=== PATIENT | female | born 1990 | race Caucasian/White ===

== ENCOUNTER 2022-06-22 08:25 | Outpatient (REF) | payer OTHER, SELFPAY ==
[2022-06-22 11:30] LABS: MANUAL DIFF FLAG NO
[2022-06-22 11:33] LABS: Appearance Urine Cloudy; Color Urine Yellow; Glucose Urine UA Negative (Negative); Leukocyte Esterase Urine Trace (Negative); Nitrite Urine Negative (Negative); UMIC TRIGGER UACC YES; Urine Blood Negative (Negative); Urine Ketones Negative (Negative); Urine Protein Negative (Neg-Trace)
[2022-06-22 11:33] LABS: Basophils Absolute Auto 0.1 X10*3/uL (0.0-0.2); Basophils Percent Auto 0.8 % (0-2); Eosinophils Absolute Auto 0.4 X10*3/uL (0.0-0.4); Eosinophils Percent Auto 5.9 % (0-4); Hematocrit 38.6 % (37.0-47.0); Hemoglobin 12.9 g/dl (12.0-16.0); Imm Gran Abs Auto 0.01 X10*3/uL (0.00-0.03); Imm Gran Pct Auto 0.2 % (0.0-0.4); Lymphocytes Absolute Auto 2.8 X10*3/uL (1.2-4.9); Lymphocytes Percent Auto 45.7 % (20-40); Mean Corpuscular HGB Conc 33.4 g/dl (31.0-35.0); Mean Corpuscular Hemoglobin 30.9 pg (27.0-33.0); Mean Corpuscular Volume 92.6 fL (80.0-98.0); Mean Platelet Volume 10.3 fL (9.4-12.3); Monocytes Absolute Auto 0.6 X10*3/uL (0.1-1.2); Monocytes Percent Auto 9.6 % (2-11); Neutrophils Absolute Auto 2.3 x10*3/uL (2.0-8.3); Neutrophils Percent Auto 37.8 % (45-73); Platelet Count 338 X10*3/uL (160-400); Red Blood Count 4.17 X10*6/uL (4.20-5.50); Red Cell Distribution Width 12.5 % (11.0-16.0); White Blood Count 6.1 X10*3/uL (4.8-10.8)
[2022-06-22 11:38] LABS: Bacteria Urine 3+ (None Seen); Hyaline Casts Urine 0-2 /LPF (0-2); UACC Culture Trigger YES
[2022-06-22 12:03] LABS: Alanine Aminotransferase 11 U/L (0-31); Alkaline Phosphatase 44 U/L (39-117); Anion Gap 10 (12-20); Aspartate Amino Transferase 14 U/L (5-31); Bilirubin Total 0.7 mg/dL (0.0-1.0); Blood Urea Nitrogen 8 mg/dL (9-16); Calcium 8.9 mg/dL (8.4-10.2); Carbon Dioxide 27 mmol/L (22-29); Chloride 108 mmol/L (96-108); Cholesterol 158 mg/dL; Estimated Glomerular Filt Rate > 60; Glucose Fasting 87 mg/dL (60-99); HDL Cholesterol 60 mg/dL; LDL Cholesterol Calculated 88 mg/dl; Potassium 4.3 mmol/L (3.3-5.1); Sodium 141 mmol/L (135-145); Total Protein 6.3 g/dL (6.5-8.0); Triglycerides 53 mg/dL
[2022-06-22 12:07] LABS: TSH reflex Free T4 0.83 uIU/mL (0.32-4.0)
== END 2022-06-22 08:26 | disposition home or self-care (01) ==
LOC: HO.HMGCLDS 08:25
PROVIDERS: PCP Nurse Practitioner Family; Visit Provider Nurse Practitioner Family
DX: Z00.00 Encounter for general adult medical examination without abnormal findings (principal); R82.90 Unspecified abnormal findings in urine
CPT/HCPCS: 36415; 80053; 80061; 81001; 84443; 85025; 87086

== ENCOUNTER 2022-10-01 12:26 | Outpatient (AMB) | payer OTHER, SELFPAY ==
--- NOTE | 2022-10-01 07:21 | MHC.PC.OV ---
Intake Visit Reasons: [phone]/Iphone/ Med management Allergies amoxicillin Allergy (Unknown, Verified 01/28/22 16:02) Hives penicillin V Allergy (Unknown, Verified 01/28/22 16:02) Hives Tobacco use date assessed: 01/28/22 HPI [phone]/Iphone/ Med management HPI Details Pt c/o increased anxiety. She reports this is worse when going to work. Will increase buspirone from 10mg bid to 15mg bid. Denies any SI and HI. [facility] Medical History Anxiety Hx of migraines Panic attacks Family History Father HTN (hypertension) High cholesterol Mother HTN (hypertension) Abnormal breast biopsy Maternal Grandmother Lung cancer Maternal Grandfather Cancer Paternal Grandmother No problems noted. Paternal Grandfather FH: stomach cancer Social History Housing: House Alcohol intake: current Alcohol intake frequency: a few times a month Patient Tobacco Use Status: Current someday Tobacco user (summer time ) e-Cigarette/Vaping Use: Never Used Second Hand Smoke Exposure: No service: No Current occupational status: employed Current occupation: [employer] Current occupational exposures/hazards: Yes Cognitive needs: No Hearing needs: No Vision needs: No Questionnaire Thrive Questionnaire Date Thrive assessed: 01/28/22 TANGELA-7 AMB Questionnaire TANGELA-7 Date TANGELA - 7 assessed: 01/28/22 Source: Developed by Drs. Ángel Payton, Katiana Roberts, Matthew Edge and colleagues, with an educational edu from [employer]. Review of Systems Const Reports as per HPI Physical exam (Primary Care) Tobacco/Smoking Status: Tobacco use Status Tobacco use date assessed 01/28/22 10/01/22 07:23 Patient Tobacco Use Status Current someday Tobacco ( 10/01/22 07:23 summer time ) e-Cigarette/Vaping Use Never Used 10/01/22 07:23 Thrive Assessment: Date of Thrive Assessment Date Thrive assessed 12/19/22 08/22/23 07:23 Const General: cooperative Orientation/consciousness: patient oriented x3 Neuro General: patient oriented x3 Psych Appearance: grossly normal Mental Status: mental status grossly normal Speech and movement: Clear speech present Affect: normal affect Attitude: cooperative Thought process: Normal thought process present Thought content: Normal thought content present Insight: Good insight present (Psych) Judgement: Good judgement present (Psych) Telehealth Telehealth Location of provider rendering services: practice address Location of patient: address on file Patient Identification confirmed using: Name, : Yes Telehealth method: video Patient verbally consented to treatment: Yes Patient verbally consented to billing insurance company: Yes Patient informed of any privacy concerns related to visit: Yes Minutes spent on Phone/Video with Pt.: 10 Assessment and Plan Assessment & Plan (1) Anxiety: Code(s): F41.9 - Anxiety disorder, unspecified Plan The patient agreed to the use of a medical receptionist for this encounter. Scribed for TOM Robb by Domi Garcia medical receptionist, on 10/01/2022 at 07:20 EST. Medications: Changed From buspirone 10 mg PO BID 180 tabs 1RF To buspirone 15 mg PO BID 60 tabs 3RF 30 days Coding Level of Care Code Tele Est Pt Level 3 (49153) Diagnoses Anxiety F41.9
== END 2022-10-01 12:26 | disposition home or self-care (01) ==
PROVIDERS: PCP Nurse Practitioner Family; Visit Provider Nurse Practitioner Family
DX: F41.9 Anxiety disorder, unspecified (principal)
CPT/HCPCS: 99213

== ENCOUNTER 2022-12-27 08:23 | Outpatient (AMB) | payer OTHER, SELFPAY ==
[2022-12-27 08:54] VITALS: BP 110/68; PULSE 89; TEMP 36.6; O2SAT 96; BMI 27.8
--- NOTE | 2022-12-27 08:54 | MHC.OFFWIV ---
Intake Vital Signs 12/27/22 08:54 Height 5 ft 3 in Weight 157 lb BMI 27.8 BP 110/68 Blood Pressure Location Rt brachial Position Sitting Pulse 89 Pulse Source Pulse Oximeter Temp 97.8 F Temp Source Temporal Artery Scan Pulse Oximetry (%) 96 Oxygen Delivery Method Room Air Intake Visit Reasons: EP Sinus Infection masked in lobby Intake Note: pt is here for c/o possible sinus infection Patient Tobacco Use Status: Current someday Tobacco user (summer ) Allergies amoxicillin Allergy (Unknown, Verified 12/27/22 08:55) Hives penicillin V Allergy (Unknown, Verified 12/27/22 08:55) Hives Do you need a note to return to daycare/school/sports/work: Yes HPI HPI Comments History of Present Illness Details This is a 32-year-old female who presents to the office today for sick visit. Patient complaining of sinus congestion and facial pain x1 week. Patient states she has been sick for approximately 3 weeks with waxing and waning viral URI symptoms such as nasal congestion, rhinorrhea, sore throat, and sinus pressure. She started to develop severe sinus congestion, facial pain, and rhinorrhea approximately 1 week ago. She denies any fevers or chills. She denies any chest pain or shortness of breath. She denies any abdominal pain or nausea/vomiting/diarrhea. [facility] Medical History Anxiety Hx of migraines Panic attacks Family History Father HTN (hypertension) High cholesterol Mother HTN (hypertension) Abnormal breast biopsy Maternal Grandmother Lung cancer Maternal Grandfather Cancer Paternal Grandmother No problems noted. Paternal Grandfather FH: stomach cancer Social History Housing: House Alcohol intake: current Alcohol intake frequency: a few times a month Patient Tobacco Use Status: Current someday Tobacco user (summer ) e-Cigarette/Vaping Use: Never Used Second Hand Smoke Exposure: No service: No Current occupational status: employed Current occupation: [employer] Current occupational exposures/hazards: Yes Cognitive needs: No Hearing needs: No Vision needs: No Review of Systems Const All systems reviewed & are unremarkable except as noted in HPI and below Reports no additional complaints Eyes Reports no additional complaints ENT Reports no additional complaints Card Reports no additional complaints Resp Reports no additional complaints GI Reports no additional complaints Reports no additional complaints Musc Reports no additional complaints Skin/Breast Reports system reviewed and no additional complaints, except as documented Neuro Reports no additional complaints Psych Reports no additional complaints Endo Reports no additional complaints Rayo/Lymph Reports no additional complaints Aller/Immun Reports no additional complaints Physical Exam Vital Signs: Last Vital Signs Temp 97.8 F 12/27/22 08:54 Pulse 89 12/27/22 08:54 BP 110/68 12/27/22 08:54 Pulse Ox 96 12/27/22 08:54 Oxygen Delivery Method Room Air 12/27/22 08:54 BMI result Body Mass Index 27.8 Const Other: Vital signs reviewed. Constitutional: Non-toxic appearing. No acute distress. Well-developed and well-nourished. HEENT: Normocephalic and atraumatic. Tympanic membranes without erythema, edema, or bulging bilaterally. External auditory canals without erythema or edema bilaterally. Moist mucous membranes. Postnasal drip with mild posterior pharyngeal erythema. Tenderness to palpation of the maxillary sinuses. Skin: Warm and dry. No rashes or lesions noted. Neck: Full and painless range of motion. No cervical lymphadenopathy. Cardio: Regular rate and rhythm. No murmurs, gallops, or rubs. No lower extremity edema. No JVD. Pulmonary: No respiratory distress. No accessory muscle usage. Clear to auscultation bilaterally without wheezing, crackles, or rhonchi. Gastrointestinal: Soft, nontender, and nondistended in all 4 quadrants. Normoactive bowel sounds in all 4 quadrants. Genitourinary: No CVA tenderness. Musculoskeletal: Normal range of motion in joints throughout the body. No deformity or other signs of injury. Neuro: Alert and oriented x4. Cranial nerves 2-12 grossly intact. No focal deficits appreciated. Psych: Normal mood and affect. Assessment & Plan Assessment & Plan (1) Acute rhinosinusitis: Code(s): J01.90 - Acute sinusitis, unspecified Plan: This is a 32-year-old female who presents the office complaining of sinus pain, sinus congestion, and rhinorrhea x1 week in the setting of waxing and waning viral URI symptoms x3 weeks. History and physical most consistent with an acute bacterial rhinosinusitis. Patient's vital signs are stable, her physical exam is benign, and she is overall nontoxic appearing. Patient sent home on p.o. doxycycline 100 mg twice daily x7 days. Patient was advised to wear long sleeves/pants in utilizes taking doxycycline. She was also recommended to take a probiotic while she is utilize any antibiotic. Recommended symptomatic management including rest, increased fluids, advil/tylenol for pain/fever, and over the counter throat lozenges/decongestants. Patient advised to follow up here or go to the emergency room for worsening/persistent symptoms. Patient verbalized understanding and is agreeable with the plan. Medications: New doxycycline hyclate 100 mg PO BID 14 caps 0RF Coding Level of Care Code Est Pt Level 3 (48120) Diagnoses Acute rhinosinusitis J01.90
== END 2022-12-27 09:12 | disposition home or self-care (01) ==
PROVIDERS: PCP Nurse Practitioner Family; Visit Provider Physician Assistant Medical
DX: J01.90 Acute sinusitis, unspecified (principal)
CPT/HCPCS: 99213

== ENCOUNTER 2023-01-29 16:27 | Outpatient (AMB) | payer OTHER, SELFPAY ==
[2023-01-29 16:29] VITALS: BP 100/80; PULSE 94; O2SAT 97; BMI 28.2
--- NOTE | 2023-01-29 16:29 | MHC.PC.OV ---
Vital Signs 01/29/23 16:29 Height 5 ft 3 in Weight 159 lb BMI 28.2 BP 100/80 Blood Pressure Location Rt brachial Position Sitting Pulse 94 Pulse Source Pulse Oximeter Pulse Oximetry (%) 97 Oxygen Delivery Method Room Air Intake Visit Reasons: PE Intake Note: Pt is here today for her PE Allergies amoxicillin Allergy (Unknown, Verified 01/29/23 17:12) Hives penicillin V Allergy (Unknown, Verified 01/29/23 17:12) Hives Medication List - Last Reconciled 01/29/23 by YAW Lopez-DILLAN buspirone 15 mg PO BID norethindrone (contraceptive) 0.35 mg PO DAILY Tobacco use date assessed: 01/29/23 Dental Screening Dental Screen Date: 01/29/23 Did you have a dental visit in the last 12 months?: Yes Did you have a dental problem in the last 6 months where you did not have access to dental care?: No Was dental information given to patient?: Patient has dentist HPI PE HPI Details Pt is here for a PE. Will order labs. 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 Pt reports right ear discomfort. [facility] Medical History Panic attacks Anxiety Hx of migraines Family History Father HTN (hypertension) High cholesterol Mother HTN (hypertension) Abnormal breast biopsy Maternal Grandmother Lung cancer Mental health disorder Maternal Grandfather Cancer Paternal Grandmother Mental health disorder Paternal Grandfather FH: stomach cancer Social History Housing: House Alcohol intake: current Alcohol intake frequency: a few times a month Patient Tobacco Use Status: Former Tobacco user (summer time ) e-Cigarette/Vaping Use: Never Used Second Hand Smoke Exposure: No service: No Current occupational status: employed Current occupation: [employer] Current occupational exposures/hazards: Yes Cognitive needs: No Hearing needs: No Vision needs: No Questionnaire PHQ-9 Over the last 2 weeks, how often have you been bothered by any of the following problems? 1. Little interest or pleasure in doing things: several days 2. Feeling down, depressed, or hopeless: several days 3. Trouble falling or staying asleep, or sleeping too much: more than half the days 4. Feeling tired or having little energy: more than half the days 5. Poor appetite or overeating: not at all 6. Feeling bad about yourself - or that you are a failure or have let yourself or your family down: more than half the days 7. Trouble concentrating on things, such as reading the newspaper or watching television: more than half the days 8. Moving or speaking so slowly that other people could have noticed. Or the opposite - being so fidgety or restless that you have been moving around a lot more than usual: not at all 9. Thoughts that you would be better off or of hurting yourself in some way: not at all Total score: 10 Depression Screening Interpretation: Positive Depression Screening Follow-up: Existing condition and Declines treatment Depression Screening Done: Yes 94701 - PHQ-9 Billing: Yes Source: Developed by Drs. Ángel Payton, Katiana Roberts, Matthew Edge and colleagues, with an educational edu from [employer]. Thrive Questionnaire Date Thrive assessed: 01/29/23 I am a: Patient What is your living situation today?: I have a steady place to live Within the past 12 months, did the food you bought not last and you didn't have the money to get more?: Never true Within the past 12 months, did you worry whether your food would run out before you got money to buy more?: Never true Do you have trouble paying for medicines?: No Do you have trouble getting transportation to medical appointments?: No Do you have trouble paying your heating and electricity bill?: No Do you have trouble taking care of your child, family member or friend?: No Do you have trouble with day-to-day activities such as bathing, preparing meals, shopping, managing finances, etc.?: No Are you currently unemployed and looking for a job?: No Are you interested in more education?: No TANGELA-7 AMB Questionnaire TANGELA-7 Date TANGELA - 7 assessed: 01/29/23 Feeling nervous, anxious, or on edge: 2 = More than half the days Not being able to stop or control worryin = More than half the days Worrying too much about different things: 2 = More than half the days Trouble relaxin = More than half the days Being so restless that it is hard to sit still: 2 = More than half the days Becoming easily annoyed or irritable: 2 = More than half the days Feeling afraid as if something awful might happen: 2 = More than half the days Total TANGELA-7 score (0-4 normal; 5-9 mild; 10-14 moderate; 15-21 severe): 14 Source: Developed by Drs. Ángel Payton, Katiana Roberts, Matthew Edge and colleagues, with an educational edu from [employer]. TANGELA-7 Assessment Billing TANGELA-7 Assessment Tool: TANGELA-7 Assessment 00576 Review of Systems Const Denies chills and Denies fever(s) Eyes Denies blurry vision ENT Denies vertigo, Denies dizziness and Denies sore throat Card Denies chest pain at rest, Denies chest pain with activity, Denies diaphoresis, Denies dyspnea and Denies dyspnea on exertion Resp Denies cough, Denies dyspnea, Denies dyspnea on exertion and Denies wheezing GI Denies abdominal pain, Denies melena, Denies hematochezia, Denies constipation, Denies diarrhea and Denies loose stools Denies hematuria Musc Denies numbness and Denies tingling Skin/Breast Denies lesions Neuro Denies vertigo, Denies dizziness, Denies numbness and Denies tingling Psych Denies anxiety, Denies depression, Denies homicidal ideation, Denies suicidal ideation and Denies other (substance abuse) Aller/Immun Denies wheezing Physical exam (Primary Care) Vital Signs: Last Vital Signs Pulse 94 01/29/23 16:29 BP 100/80 01/29/23 16:29 Pulse Ox 97 01/29/23 16:29 Oxygen Delivery Method Room Air 01/29/23 16:29 BMI result Body Mass Index 28.2 Tobacco/Smoking Status: Tobacco use Status Tobacco use date assessed 01/29/23 01/29/23 16:35 Patient Tobacco Use Status Former Tobacco user (summer01/29/23 16:35 time ) e-Cigarette/Vaping Use Never Used 01/29/23 16:35 PHQ-9: PHQ-9 Score PHQ-9: Total score 10 01/29/23 16:56 Depression Screening Interpretation: Positive Depression Screening Follow-up: Existing condition and Declines treatment Thrive Assessment: Date of Thrive Assessment Date Thrive assessed 01/29/23 01/29/23 16:56 Const General: cooperative Nutritional Appearance: well nourished Orientation/consciousness: patient oriented x3 HENMT Other: right TM bulging, faintly erythematous. Head: Yes normal to inspection, Yes normocephalic and Yes atraumatic Ears: TM's normal bilaterally Eyes General: appearance normal, both eyes and all related structures Alignment and Position: alignment normal and position normal Neck Neck: Yes normal visual inspection and Yes no lymphadenopathy Thyroid: Thyroid normal Resp Effort & Inspection: normal respiratory effort Auscultation: clear to auscultation bilaterally Cardio Rate: regular rate Rhythm: regular rhythm Heart sounds: S1 normal heart sound present, S2 normal heart sound present and no murmurs GI Palpation (GI): Soft to palpation and nontender Auscultation: normal bowel sounds Skin Rashes: no rashes Neuro General: patient oriented x3, moves all extremities, no focal motor deficits and deep tendon reflexes 2+ bilaterally Romberg Test: Negative Psych Appearance: grossly normal Mental Status: mental status grossly normal Speech and movement: Normal speech and movement present Affect: normal affect Attitude: cooperative Thought process: Normal thought process present Thought content: Normal thought content present Insight: Good insight present (Psych) Judgement: Good judgement present (Psych) Assessment and Plan Assessment & Plan (1) Physical exam: Code(s): Z00.00 - Encounter for general adult medical examination without abnormal findings (2) Otitis media: Code(s): H66.90 - Otitis media, unspecified, unspecified ear Plan: prednisone and doxy sent Orders: Orders Complete Blood Count Auto Diff Today Z00.00 - Encounter for general adult medical examination without abnormal findings Lipid Panel Today Z00.00 - Encounter for general adult medical examination without abnormal findings Comprehensive Girard. Panel Fast Today Z00.00 - Encounter for general adult medical examination without abnormal findings TSH reflex Free T4 Today Z00.00 - Encounter for general adult medical examination without abnormal findings UA CC w/rflx Micro + Cult Today Z00.00 - Encounter for general adult medical examination without abnormal findings Medications: New doxycycline hyclate 100 mg PO BID 20 tabs 0RF 10 days prednisone 40 mg (2 x 20 mg) PO DAILY 10 tabs 0RF 5 days Coding Level of Care Code Est Pt Prev Care 18-39y(11591) Diagnoses Physical exam Z00.00 Otitis media H66.90 Additional Codes TANGELA-7 Assessment Billing - TANGELA-7 Assessment Tool: TANGELA-7 Assessment [id number] ([id number])
== END 2023-01-29 16:52 | disposition home or self-care (01) ==
PROVIDERS: Visit Provider Nurse Practitioner Family
DX: Z00.00 Encounter for general adult medical examination without abnormal findings (principal); H66.90 Otitis media, unspecified, unspecified ear
CPT/HCPCS: 99395

== ENCOUNTER 2024-02-14 09:02 | Outpatient (REF) | payer OTHER, SELFPAY ==
[2024-02-14 11:22] LABS: MANUAL DIFF FLAG NO
[2024-02-14 11:47] LABS: Basophils Absolute Auto 0.1 X10*3/uL (0.0-0.2); Basophils Percent Auto 0.8 % (0-2); Eosinophils Absolute Auto 0.3 X10*3/uL (0.0-0.4); Eosinophils Percent Auto 4.7 % (0-4); Hematocrit 40.8 % (37.0-47.0); Hemoglobin 13.6 g/dl (12.0-16.0); Imm Gran Abs Auto 0.02 X10*3/uL (0.00-0.03); Imm Gran Pct Auto 0.3 % (0.0-0.4); Lymphocytes Absolute Auto 2.4 X10*3/uL (1.2-4.9); Lymphocytes Percent Auto 39.2 % (20-40); Mean Corpuscular HGB Conc 33.3 g/dl (31.0-35.0); Mean Corpuscular Hemoglobin 30.8 pg (27.0-33.0); Mean Corpuscular Volume 92.3 fL (80.0-98.0); Mean Platelet Volume 9.8 fL (9.4-12.3); Monocytes Absolute Auto 0.6 X10*3/uL (0.1-1.2); Monocytes Percent Auto 9.1 % (2-11); Neutrophils Absolute Auto 2.8 x10*3/uL (2.0-8.3); Neutrophils Percent Auto 45.9 % (45-73); Platelet Count 339 X10*3/uL (160-400); Red Blood Count 4.42 X10*6/uL (4.20-5.50); Red Cell Distribution Width 12.9 % (11.0-16.0)
[2024-02-14 12:00] LABS: Alanine Aminotransferase 21 U/L (0-31); Albumin Level 4.3 g/dL (3.5-5.0); Alkaline Phosphatase 51 U/L (39-117); Anion Gap 11 (12-20); Aspartate Amino Transferase 23 U/L (5-31); Bilirubin Total 0.6 mg/dL (0.0-1.0); Blood Urea Nitrogen 9 mg/dL (9-16); Calcium 9.4 mg/dL (8.4-10.2); Carbon Dioxide 26 mmol/L (22-29); Chloride 109 mmol/L (96-108); Cholesterol 202 mg/dL (<200); Estimated Glomerular Filt Rate > 60; Glucose Fasting 95 mg/dL (60-99); HDL Cholesterol 71 mg/dL (>40); LDL Cholesterol Calculated 115 mg/dL (<100); Potassium 4.8 mmol/L (3.3-5.1); Sodium 141 mmol/L (135-145); Triglycerides 81 mg/dL (<150)
[2024-02-14 12:07] LABS: TSH reflex Free T4 0.63 uIU/mL (0.32-4.0); Vitamin D 25-OH Total 38.1 ng/mL (>30)
[2024-02-14 12:19] LABS: Appearance Urine Clear; Color Urine Yellow; Glucose Urine UA Negative (Negative); Leukocyte Esterase Urine Negative (Negative); Nitrite Urine Negative (Negative); PH 6.5 (5.0-9.0); UMIC TRIGGER UACC YES; Urine Blood Small (1+) (Negative); Urine Ketones Negative (Negative); Urine Protein Negative (Neg-Trace)
[2024-02-14 12:36] LABS: Bacteria Urine None Seen (None Seen); Hyaline Casts Urine 0-2 /LPF (0-2); WBC Urine 0-5 /HPF (0-5)
== END 2024-02-14 09:03 | disposition home or self-care (01) ==
LOC: HO.HMGCLDS 09:02
PROVIDERS: PCP Nurse Practitioner Family; Visit Provider Nurse Practitioner Family
DX: Z00.00 Encounter for general adult medical examination without abnormal findings (principal)
CPT/HCPCS: 36415; 80053; 80061; 81001; 81003; 82306; 84443; 85025

== ENCOUNTER 2024-02-16 07:27 | Outpatient (AMB) | payer OTHER, SELFPAY ==
--- NOTE | 2024-02-16 07:38 | A.OFFPC_ITS ---
Vital Signs 02/16/24 07:42 Height 5 ft 4 in Weight 162 lb BMI 27.8 BP 100/72 Blood Pressure Location Lt brachial Position Sitting Pulse 64 Pulse Source Pulse Oximeter Pulse Oximetry (%) 98 Oxygen Delivery Method Room Air Intake Visit Reasons: PE Intake Note: Pt is here today for her PE Allergies amoxicillin Allergy (Unknown, Verified 02/16/24 07:51) Hives penicillin V Allergy (Unknown, Verified 02/16/24 07:51) Hives Medication List - Last Reconciled 02/16/24 by FERNANDO LopezP- buspirone 15 mg PO BID escitalopram oxalate mg PO DAILY Tobacco use date assessed: 02/16/24 Dental Screening Dental Screen Date: 02/16/24 Did you have a dental visit in the last 12 months?: Yes Did you have a dental problem in the last 6 months where you did not have access to dental care?: No Was dental information given to patient?: Patient has dentist HPI PE HPI Details History of Present Illness The patient is a 33-year-old female presenting for a routine physical examination. She has a history of breast cancer screening and was referred for possible genetic testing due to family history, although it was determined she did not need further evaluation at the time. The patient denies any history of pancreatic or colon cancer. She reports a recent episode of blood in the urine, which coincided with menstruation. Her lipid panel showed slightly elevated LDL cholesterol levels, which are being monitored. Health Maintenance - Family history assessment for breast c ancer and genetic risk - Monitoring of LDL cholesterol levels, slightly elevated - Urinalysis performed with noted hematu bethany potentially associated with menstruation Social History Review of Systems - Cardiovascular: Denies chest pain - Respiratory: Denies shortness of breat h - Constitutional: Denies fevers, chills - Gastrointestinal: Denies vomiting - Neurological: Denies numbness, tinglin g - Psychiatric: Denies increased anxiety, increased depression, suicidal or homicidal ideation Physical Exam General: Cooperative, healthy appearing, comfortable, no acute distress and well developed Orientation: Patient oriented x3 Limitations: No limitations Head: Normal to inspection Ears: Hearing grossly normal bilaterally Nose: Normal external nose present Face and sinus: Normal facial exam Eyes: Appearance normal, both eyes and all related structures Neck: Normal visual inspection and Yes full ROM Respiratory: Normal respiratory effort and able to speak in complete sentences. Clear to auscultation bilaterally Cardiovascular: Regular rate and rhythm. Normal S1 and S2 GI: Normal to inspection. Soft to palpation and nontender Skin: No rashes or lesions noted Neuro: Patient oriented x3 Extremities: Normal to inspection, no edema noted Results - Labs: Blood in urine (likely due to me nstruation) - Labs: Elevated LDL cholesterol Plan - Monitor LDL cholesterol and encourage lifestyle modifications if needed. - Evaluate hematuria in context of menst rual cycle; reassess if persists. - Continue routine breast cancer screeni ng as indicated. - No referral for genetic testing requir ed at this time. Patient was informed and verbally consented to the use of an ambient scribe for clinic note documentation during this visit. Discussion Notes We discussed the importance of monitoring her lipid levels given the slightly elevated LDL cholesterol. I reassured her that the blood in the urine could be attributed to menstruation, but advised monitoring it if it persists outside of her menstrual cycle. I confirmed her previous referral for genetic testing for b reast cancer due to family history but acknowledged that further assessment was not necessary at this point. She was informed about the normal findings of the physical examination and the current plan for her health maintenance. Patient Instructions - Monitor any changes in urine color out side of menstruation. - Maintain a healthy diet and consider l ifestyle modifications to manage cholesterol levels. - Continue regular breast self-examinati ons and report any changes promptly. - Follow up if symptoms such as chest pa in or shortness of breath develop. [facility] Medical History Panic attacks Anxiety Hx of migraines Family History Father HTN (hypertension) High cholesterol Mother HTN (hypertension) Abnormal breast biopsy Maternal Grandmother Lung cancer Mental health disorder Maternal Grandfather Cancer Paternal Grandmother Mental health disorder Paternal Grandfather FH: stomach cancer Social History Housing: House Alcohol intake: current Alcohol intake frequency: a few times a month Patient Tobacco Use Status: Former Tobacco user (summer time ) e-Cigarette/Vaping Use: Never Used Second Hand Smoke Exposure: No service: No Current occupational status: employed Current occupation: [employer] Current occupational exposures/hazards: Yes Cognitive needs: No Hearing needs: No Vision needs: Yes Questionnaire PHQ-9 Over the last 2 weeks, how often have you been bothered by any of the following problems? 1. Little interest or pleasure in doing things: several days 2. Feeling down, depressed, or hopeless: not at all 3. Trouble falling or staying asleep, or sleeping too much: several days 4. Feeling tired or having little energy: several days 5. Poor appetite or overeating: not at all 6. Feeling bad about yourself - or that you are a failure or have let yourself or your family down: not at all 7. Trouble concentrating on things, such as reading the newspaper or watching television: not at all 8. Moving or speaking so slowly that other people could have noticed. Or the opposite - being so fidgety or restless that you have been moving around a lot more than usual: not at all 9. Thoughts that you would be better off or of hurting yourself in some way: not at all Total score: 3 Depression Screening Interpretation: Negative Depression Screening Done: Yes 08996 - PHQ-9 Billing: Yes Source: Developed by Drs. Ángel Payton, Katiana Roberts, Matthew Edge and colleagues, with an educational edu from [email or web address]. Thrive Questionnaire Date Thrive assessed: 02/14/24 I am a: Patient What is your living situation today?: I have a steady place to live Within the past 12 months, did the food you bought not last and you didn't have the money to get more?: Never true Within the past 12 months, did you worry whether your food would run out before you got money to buy more?: Never true Do you have trouble paying for medicines?: No Do you have trouble getting transportation to medical appointments?: No Do you have trouble paying your heating and electricity bill?: No Do you have trouble taking care of your child, family member or friend?: No Do you have trouble with day-to-day activities such as bathing, preparing meals, shopping, managing finances, etc.?: No Are you currently unemployed and looking for a job?: No Are you interested in more education?: Yes Please select the resources that you would like help with: None Currently or been in a relationship where the following occur: No concerns reported THRIVE Score: 0 AUDIT C Alcohol Use Questionnaire (AUDIT-C) 1. How often do you have a drink containing alcohol?: 2-4 times a month 2. How many drinks containing alcohol do you have on a typical day when you are drinking?: 3 or 4 3. How often do you have six or more drinks on one occasion?: Less than monthly Total Score: 4 TANGELA-7 AMB Questionnaire TANGELA-7 Date TANGELA - 7 assessed: 02/16/24 Feeling nervous, anxious, or on edge: 2 = More than half the days Not being able to stop or control worryin = More than half the days Worrying too much about different things: 2 = More than half the days Trouble relaxin = More than half the days Being so restless that it is hard to sit still: 0 = Not at all Becoming easily annoyed or irritable: 1 = Several days Feeling afraid as if something awful might happen: 3 = Nearly every day Total TANGELA-7 score (0-4 normal; 5-9 mild; 10-14 moderate; 15-21 severe): 12 Source: Developed by Drs. Ángel Payton, Katiana Roberts, Matthew Edge and colleagues, with an educational edu from [email or web address]. TANGELA-7 Assessment Billing TANGELA-7 Assessment Tool: TANGELA-7 Assessment 97967 Physical exam (Primary Care) Vital Signs: Last Vital Signs Pulse 64 02/16/24 07:42 BP 100/72 02/16/24 07:42 Pulse Ox 98 02/16/24 07:42 Oxygen Delivery Method Room Air 02/16/24 07:42 BMI result Body Mass Index 27.8 Tobacco/Smoking Status: Tobacco use Status Tobacco use date assessed 02/16/24 02/16/24 07:41 Patient Tobacco Use Status Former Tobacco user (summer02/16/24 07:41 time ) e-Cigarette/Vaping Use Never Used 02/16/24 07:41 PHQ-9: PHQ-9 Score PHQ-9: Total score 3 02/16/24 07:41 Depression Screening Interpretation: Negative Thrive Assessment: Date of Thrive Assessment Date Thrive assessed 02/14/24 02/16/24 07:41 Currently or been in a relationship where the following occur: No concerns reported Coding Level of Care Code Est Pt Prev Care 18-39y(42617) Diagnoses Physical exam Z. Additional Codes PHQ-9 - 03753 - PHQ-9 Billing: Yes ([id number]) TANGELA-7 Assessment Billing - TANGELA-7 Assessment Tool: TANGELA-7 Assessment 38916 ([id number]) Assessment & Plan Assessment & Plan (1) Physical exam: Code(s): Z - Encounter for general adult medical examination without abnormal findings Category: Medical Plan . Orders: Orders Comprehensive [place]. Panel Fast 02/14/24 Z. - Encounter for general adult medical examination without abnormal findings Complete Blood Count Auto Diff 02/14/24 Z. - Encounter for general adult medical examination without abnormal findings TSH reflex Free T4 02/14/24 Z. - Encounter for general adult medical examination without abnormal findings UA CC w/rflx Micro + Cult 02/14/24 Z00. - Encounter for general adult medical examination without abnormal findings Vitamin D 25-OH Total 02/14/24 Z. - Encounter for general adult medical examination without abnormal findings Lipid Panel 02/14/24 Z00.00 - Encounter for general adult medical examination without abnormal findings Medications: New omeprazole 20 mg PO DAILY 90 days 90 caps 1RF
[2024-02-16 07:42] VITALS: BP 100/72; PULSE 64; O2SAT 98; BMI 27.8
== END 2024-02-16 07:59 | disposition home or self-care (01) ==
PROVIDERS: PCP Nurse Practitioner Family; Visit Provider Nurse Practitioner Family
DX: Z00.00 Encounter for general adult medical examination without abnormal findings (principal)

== ENCOUNTER → 2024-02-16 07:27 | Outpatient (BNVA) | payer OTHER, SELFPAY | PROVIDERS: PCP Nurse Practitioner Family; Visit Provider Nurse Practitioner Family | DX: Z00.00 Encounter for general adult medical examination without abnormal findings (principal) | CPT/HCPCS: 96127 ==